=== PATIENT | female | born 1960 | race Caucasian/White ===

== ENCOUNTER 2016-07-18 13:18 | Emergency (ER) | payer OTHER ==
[~2016-07-18] VITALS: Wt 76.0 kg
[~2016-07-18 13:18] MED LIST: HYDR12.53
--- NOTE | 2016-07-18 14:50 | ERD ---
ER Documentation Chief Complaint Date/Time DATE: 07/18/16 TIME: 14:38 Chief Complaint cough and congestion for the past few days. no signs of distress. no neuro HPI Pleasant ,Angolan-speaking, 55-year-old female presenting to emergency department with complaint of cough and phlegm 5 days, occasional runny nose, and chest congestion. Cough is worse at night, patient reports she has not been able to sleep secondary to cough, complaints that she has been coughing so hard she is vomited. Patient denies chest pain, shortness of breath, palpitations, or dizziness History of asthma uses albuterol MDI, patient reports using it 4 times a day with no relief of symptoms. ROS All systems reviewed and are negative except as per history of present illness. Medications Home Meds Active Scripts Albuterol Sulfate* (Ventolin HFA*) 18 Gm Hfa.aer.ad, 2 PUFF INHALATION Q4H, #1 INHALER Prov:MALIKA,ADINA 07/18/16 [albuterol] No Conflict Check Prov:MALIKA,ADINA 07/18/16 Prednisone* (Prednisone*) 20 Mg Tab, 40 MG PO DAILY for 4 Days, TAB Prov:MALIKA,ADINA 07/18/16 Reported Medications Hydrochlorothiazide (Hydrochlorothiazide) 12.5 Mg Capsule, Daily 09/11/12 Allergies Allergies: Coded Allergies: Penicillins (Verified Allergy, Intermediate, Rash, 07/04/14) PMhx/Soc History of Surgery: No Anesthesia Reaction: No Hx Neurological Disorder: Yes (Neuropathy) Hx Respiratory Disorders: No Hx Cardiac Disorders: Yes (htn) Hx Psychiatric Problems: No Hx Miscellaneous Medical Probl: Yes Hx Alcohol Use: No Hx Substance Use: No Hx Tobacco Use: No Physical Exam Vitals Vital signs stable, nursing notes reviewed Physical Exam Const: No acute distress Head: Atraumatic Eyes: Normal Conjunctiva ENT: Tympanic membranes translucent, positive light reflex, nasal mucosa inflamed, mucus noted, no maxillary or frontal sinus tenderness, pharynx moist, tongue midline, uvula rises and falls with pronation, tonsils not visualized, no exudate Neck: Full range of motion..~ No meningismus.no nuchal rigidity Resp: Clear to auscultation bilaterally, no rhonchi, rales or wheezing with forced expiration. Respirations even and unlabored, patient in no respiratory distress Cardio: Regular rate and rhythm, no murmurs Abd: Soft, non tender, non distended. Normal bowel sounds Skin: Back: Ext: Neur: Awake and alert Psych: Normal Mood and Affect Procedures/MDM Pleasant 55-year-old female, Angolan-speaking translation provided on speak to translate, reports cough 5 days history of asthma. Patient's physical exam and history are consistent with bronchitis. Patient is not wheezing at this time, no chest congestion are egophony pneumonia is not suspected. Temperature normal vital signs are stable. I feel the patient is stable for discharge at this time. I have discussed results, examination findings, the treatment plan with the patient prior to discharge. Indications for emergent reevaluation, side effects of medication and comfort care were also discussed. All questions were answered. Patient verbalizes understanding and agrees with plan of care. Departure Diagnosis: Primary Impression: Bronchitis Condition: Good ADINA DALY Jul 18, 2016 14:49 Condition: Stable ADINA DALY Jul 18, 2016 14:49
[2016-07-18] MEDS ORDERED: PRED20TA PO (14:56)
[2016-07-18] MEDS ORDERED: albuterol (14:59)
[2016-07-18] MEDS ORDERED: ALBU18HF INHALATION (14:59)
== END 2016-07-18 14:53 | disposition home or self-care (01) ==
LOC: E/R 13:18
DX: J40 Bronchitis, not specified as acute or chronic (principal); I10 Essential (primary) hypertension
CPT/HCPCS: 99284

== ENCOUNTER 2016-08-29 01:11 | Emergency (ER) | payer OTHER ==
[~2016-08-29] VITALS: Ht 160 cm; Wt 79.5 kg
[~2016-08-29 01:11] MED LIST changes: +ALBU18HF INHALATION; +PRED20TA PO; +albuterol
[2016-08-29 01:12] VITALS: Ht 160 cm; Wt 79.5 kg
--- NOTE | 2016-08-29 02:23 | ERD ---
ER Documentation Chief Complaint Date/Time DATE: 08/29/16 TIME: 02:21 Chief Complaint BILATERAL FLANK PAIN WITH DYSURIA/HEMATURIA SINCE YESTERDAY HPI 57-year-old female presents here in emergency department for complaints of hematuria dysuria foul-smelling urine started yesterday. Patient is complaining of dysuria, burning pain, 4/10 scale, accompanied with hematuria and urinary urgency and frequency. Patient started to have the bilateral flank pain tonight. described the pain as sharp pain, 6/10 scale,accompanying other symptoms. Patient denies any nausea vomiting. Patient denies any abdominal pain. Patient denies fever or chills. Patient did not take any medication to help with symptoms. ROS All systems reviewed and are negative except as per history of present illness. Medications Home Meds Active Scripts Albuterol Sulfate* (Ventolin HFA*) 18 Gm Hfa.aer.ad, 2 PUFF INHALATION Q4H, #1 INHALER Prov:MALIKA,ADINA 07/18/16 [albuterol] No Conflict Check Prov:MALIKA,ADINA 07/18/16 Prednisone* (Prednisone*) 20 Mg Tab, 40 MG PO DAILY for 4 Days, TAB Prov:MALIKA,ADINA 07/18/16 Reported Medications Hydrochlorothiazide (Hydrochlorothiazide) 12.5 Mg Capsule, Daily 09/11/12 Allergies Allergies: Coded Allergies: Penicillins (Verified Allergy, Intermediate, Rash, 07/04/14) PMhx/Soc History of Surgery: No Anesthesia Reaction: No Hx Neurological Disorder: Yes (Neuropathy) Hx Respiratory Disorders: No Hx Cardiac Disorders: Yes (htn) Hx Psychiatric Problems: No Hx Miscellaneous Medical Probl: Yes Hx Alcohol Use: No Hx Substance Use: No Hx Tobacco Use: No Smoking Status: Never smoker FmHx Family History: No coronary disease, No diabetes, No other Physical Exam Vitals Vital Signs Date Time Temp Pulse Resp B/P Pulse Ox O2 Delivery O2 Flow Rate FiO2 08/29/16 01:12 98.3 85 18 144/66 98 Physical Exam GENERAL: The patient is well developed and appropriate for usual state of health, in no apparent distress. CHEST: Clear to auscultation bilaterally. There are no rales, wheezes or rhonchi. HEART: Regular rate and rhythm. No murmurs, clicks, rubs or gallops. No S3 or S4. ABDOMEN: Soft, nontender and nondistended. Good bowel sounds. No rebound or guarding. No gross peritonitis. No gross organomegaly or masses. No Urbina sign or McBurney point tenderness. BACK: No midline or flank tenderness. EXTREMITIES: Equal pulses bilaterally. There is no peripheral clubbing, cyanosis or edema. No focal swelling or erythema. Full range of motion. Grossly neurovascularly intact. NEURO: Alert and oriented. Cranial nerves 2-12 intact. Motor strength in all 4 extremities with 5/5 strength. Sensation grossly intact. Normal speech and gait. SKIN: There is no apparent rash or petechia. The skin is warm and dry. HEMATOLOGIC AND LYMPHATIC: There is no evidence of excessive bruising or lymphedema. No gross cervical, axillary, or inguinal lymphadenopathy. Result Diagram: 08/29/16 0232 08/29/16 0232 Results 24 hrs Laboratory Tests Test 08/29/16 02:32 08/29/16 02:35 White Blood Count 12.010^3/ul Red Blood Count 4.2010^6/ul Hemoglobin 13.2g/dl Hematocrit 39.0% Mean Corpuscular Volume 92.9fl Mean Corpuscular Hemoglobin 31.4pg Mean Corpuscular Hemoglobin Concent 33.8g/dl Red Cell Distribution Width 13.5% Platelet Count 24231^3/UL Mean Platelet Volume 12.3fl Neutrophils % 78.5% Lymphocytes % 13.3% Monocytes % 6.3% Eosinophils % 1.1% Basophils % 0.3% Nucleated Red Blood Cells % 0.0/100WBC Neutrophils # 9.410^3/ul Lymphocytes # 1.610^3/ul Monocytes # 0.810^3/ul Eosinophils # 0.110^3/ul Basophils # 0.010^3/ul Nucleated Red Blood Cells # 0.010^3/ul Sodium Level 142mmol/L Potassium Level 4.0mmol/L Chloride Level 101mmol/L Carbon Dioxide Level 27mmol/L Anion Gap 18 Blood Urea Nitrogen 19mg/dl Creatinine 0.64mg/dl Glucose Level 160mg/dl Calcium Level 9.3mg/dl Total Bilirubin 0.2mg/dl Direct Bilirubin 0.00mg/dl Indirect Bilirubin 0.2mg/dl Aspartate Amino Transf (AST/SGOT) 34IU/L Alanine Aminotransferase (ALT/SGPT) 51IU/L Alkaline Phosphatase 142IU/L Total Protein 7.1g/dl Albumin 4.2g/dl Globulin 2.90g/dl Albumin/Globulin Ratio 1.44 Lipase 70U/L Urine Color RED Urine Clarity CLEAR Urine pH 8.5 Urine Specific [place] Pool 1.015 Urine Ketones TRACE Urine Nitrite POSITIVE Urine Bilirubin NEGATIVE Urine Urobilinogen 1.0 E.U./dL Urine Leukocyte Esterase 2+ Urine Microscopic RBC >200/HPF Urine WBC Clumps FEW Urine Microscopic WBC 25-50/HPF Urine Bacteria MANY Urine Mucus MANY Urine Hemoglobin 3+ Urine Glucose NEGATIVE% Urine Total Protein 4+ PROCEDURE: CT Abdomen and Pelvis without contrast. CLINICAL INDICATION: Abdominal pain TECHNIQUE: CT scan of the abdomen and pelvis without contrast was performed on a multidetector high-resolution CT scanner. The patient was scanned without intravenous contrast. No oral contrast was administered. Coronal and sagittal reformatted images were obtained from the axial source images. Images were reviewed on a high-resolution PACS workstation. The total exam CTDI equals 15.37 mGy and the total exam DLP equals 897.15 mGy-cm. One or more of the following dose reduction techniques were used: - Automated exposure control. - Adjustment of the mA and/or kV according to patient size. - Use of iterative reconstruction technique. COMPARISON: None. FINDINGS: Lungs: Linear atelectasis/fibrosis is seen at the lung bases. Liver: No abnormality seen. Gallbladder: No abnormality seen. Spleen: No abnormality seen. Stomach: The stomach is not fully distended. No gross abnormality seen. Pancreas: No abnormality seen. Adrenals: No abnormality seen. Kidneys: No abnormality seen. Abdominal aorta: No aneurysm seen. Lymph nodes: No enlarged lymph nodes are seen. Small bowel: No dilated small bowel loops are seen. Colon: No abnormality seen. Appendix: No abnormality seen. Bladder: No abnormality seen Pelvic organs: No abnormality seen Ascites: None seen. Osseous structures: Small scattered likely bone islands. Mild to moderate degenerative disk changes at L4-5. Right lateral bridging osteophytes in lower thoracic spine.. Approximate 1.8 x 1 cm linear metallic radiodensity in umbilicus. IMPRESSION: Approximate 1 cm linear metallic radiodensity in umbilicus. Otherwise no acute abnormality seen. Please see above. RPTAT: HJES .Andrew Carrera MD, MD Date Time Electronically viewed and signed by .Andrew Carrera MD, on 08/29/2016 02:55 .S/ CC: GERARDO DEAN NP Procedures/MDM Medical Decision Making: Patient symptoms and signs consistent with pyelonephritis, started with acute cystitis. But at this time, outpatient management is appropriate, patient appears well and seemed in stable, patient does not have any fever. Patient is mild leukocytosis but no bandemia. Patient does not have any symptoms of septic stone. There is low suspicion for abdominal emergencies at this time. Patients abdominal exam is normal at this time. Patients radiology exam does not show any abdominal emergencies at this time. There is low suspicion for appendicitis, cholecystitis, abdominal aortic aneurysms or peritonitis at this time. There is low suspicion for sepsis. Patient appears well and is hemodynamically stable. Disposition: Home. Condition: Stable Prescription Pyridium, ciprofloxacin Instructions: Patient is advised to take medications as prescribed. Patient is advised to rest, increase fluid intake and do brat diet for next 1-2 days and progress as tolerated. Patient is advised that if symptoms are worse, severe abdominal pain, uncontrolled vomiting, high fever, severe flank pain, worst signs and symptoms, to return to the emergency department immediately. Otherwise, patient can follow up with primary care doctor in 5-7 days. Departure Diagnosis: Primary Impression: Pyelonephritis Condition: Stable Patient Instructions: Pyelonephritis, Female (Adult) Additional Instructions: Patient is advised to take medications as prescribed. Patient is advised to rest , increase fluid intake and do brat diet for next 1-2 days and progress as tolerated. Patient is advised that if symptoms are worse, severe abdominal pain , uncontrolled vomiting, high fever, severe flank pain, worst signs and symptoms , to return to the emergency department immediately. Otherwise, patient can follow up with primary care doctor in 5-7 days. GERARDO DEAN NP Aug 29, 2016 02:23
[2016-08-29 02:43] LABS: ADD SCAN DIFF NO
[2016-08-29 02:44] LABS: BASOPHILS % 0.3 % (0.0-2.0); EOSINOPHILS # 0.1 10^3/ul (0.0-0.5); EOSINOPHILS % 1.1 % (0.0-7.0); HEMOGLOBIN 13.2 g/dl (12.0-16.0); LYMPHOCYTES # 1.6 10^3/ul (0.8-2.9); LYMPHOCYTES % 13.3 % (15.0-51.0); MEAN CORPUSCULAR HEMOGLOBIN 31.4 pg (29.0-33.0); MEAN CORPUSCULAR HGB CONC 33.8 g/dl (32.0-37.0); MEAN CORPUSCULAR VOLUME 92.9 fl (82.0-101.0); MEAN PLATELET VOLUME 12.3 fl (7.4-10.4); MONOCYTE # 0.8 10^3/ul (0.3-0.9); MONOCYTES % 6.3 % (0.0-11.0); NEUTROPHIL # 9.4 10^3/ul (1.6-7.5); NEUTROPHILS % 78.5 % (39.0-77.0); PLATELET COUNT 208 10^3/UL (140-415); RED CELL DISTRIBUTION WIDTH 13.5 % (11.5-14.5)
[2016-08-29 02:52] LABS: ADD UMIC YES; URINE BILIRUBIN (Dip) NEGATIVE (NEGATIVE); URINE BLOOD (Dip) 3+ (NEGATIVE); URINE COLOR RED (YELLOW); URINE GLUCOSE (Dip) NEGATIVE (NEGATIVE); URINE KETONES (Dip) TRACE (NEGATIVE); URINE LEUKOCYTE ESTERASE (Dip) 2+ (NEGATIVE); URINE NITRITE (Dip) POSITIVE (NEGATIVE); URINE TOTAL PROTEIN (Dip) 4+ (NEGATIVE); URINE UROBILINOGEN (Dip) 1.0 E.U./dL (0.1-1.0)
--- NOTE | 2016-08-29 02:56 | RADRPT ---
PROCEDURE: CT Abdomen and Pelvis without contrast. CLINICAL INDICATION: Abdominal pain TECHNIQUE: CT scan of the abdomen and pelvis without contrast was performed on a multidetector hig h-resolution CT scanner. The patient was scanned without intravenous contrast. No oral contrast was administered. Coronal and sagittal reformatted images were obtained from the axial source images. Im ages were reviewed on a high-resolution PACS workstation. The total exam CTDI equals 15.37 mGy and the total exam DLP equals 897.15 mGy-cm. One or more of the following dose reduction techniques were used: - Automated exposure control. - Adjustment of the mA and/or kV according to patient size. - Use of iterative reconstruction technique. COMPARISON: None. FINDINGS: Lungs: Linear atelectasis/fibrosis is seen at the lung bases. Liver: No abnormality seen. Gallbladder: No abnormality seen. Spleen: No abnormality seen. Stomach: The stomach is not fully distended. No gross abnormality seen. Pancreas: No abnormality seen. Adrenals: No abnormality seen. Kidneys: No abnormality seen. Abdominal aorta: No aneurysm seen. Lymph nodes: No enlarged lymph nodes are seen. Small bowel: No dilated small bowel loops are seen. Colon: No abnormality seen. Appendix: No abnormality seen. Bladder: No abnormality seen Pelvic organs: No abnormality seen Ascites: None seen. Osseous structures: Small scattered likely bone islands. Mild to moderate degenerative disk change s at L4-5. Right lateral bridging osteophytes in lower thoracic spine.. Approximate 1.8 x 1 cm linear metallic radiodensity in umbilicus. IMPRESSION: Approximate 1 cm linear metallic radiodensity in umbilicus. Otherwise no acute abnormality seen. Ple ase see above. RPTAT: HJES .Andrew Carrera MD, MD Date Time Electronically viewed and signed by .Andrew Carrera MD, MD on 08/29/2016 02:55 .S/
[2016-08-29 03:00] LABS: ALBUMIN 4.2 g/dl (3.3-4.9)
[2016-08-29 03:03] LABS: ALBUMIN/GLOBULIN RATIO 1.44; BILIRUBIN,INDIRECT 0.2 mg/dl (0-1.1); BILIRUBIN,TOTAL 0.2 mg/dl (0.2-1.3); CREATININE 0.64 mg/dl (0.44-1.00); TOTAL PROTEIN 7.1 g/dl (6.1-8.1)
[2016-08-29 03:04] LABS: CALCIUM 9.3 mg/dl (8.4-10.2)
[2016-08-29 03:16] LABS: BACTERIA,URINE MANY; MUCUS,URINE MANY; URINE RBCS >200 /HPF (0)
[2016-08-29] MEDS ORDERED: CIPR500T4 PO (03:34)
[2016-08-29] MEDS ORDERED: PHEN-538 PO (03:34)
== END 2016-08-29 03:46 | disposition home or self-care (01) ==
LOC: FTE 01:11
DX: N12 Tubulo-interstitial nephritis, not specified as acute or chronic (principal); I10 Essential (primary) hypertension
CPT/HCPCS: 36415; 74176; 80053; 81001; 81003; 83690; 85025; Z7502

== ENCOUNTER 2018-04-21 17:23 | Emergency (ER) | END 2018-04-22 00:35 | disposition home or self-care (01) ==